=== PATIENT | female | born 1940 | race Caucasian/White ===

== ENCOUNTER 2022-03-17 05:59 | Day surgery (SDC) | payer MEDICARE, OTHER ==
[2022-03-16 11:29] LABS: BASOPHILS % (AUTO) 0.4 % (0-1); EOSINOPHILS # (AUTO) 0.2 X10'3 (0-0.9); EOSINOPHILS % (AUTO) 3.1 % (0-6); HEMOGLOBIN 14.3 g/dl (12.0-16.0); LYMPHOCYTES # (AUTO) 1.2 X10'3 (1.1-4.8); LYMPHOCYTES % (AUTO) 23.1 % (21-51); MEAN CORPUSCULAR HEMOGLOBIN 28.4 PG (27.0-31.0); MEAN CORPUSCULAR HGB CONC 33.3 g/dL (33.0-36.5); MEAN CORPUSCULAR VOLUME 85.3 FL (78-98); MEAN PLATELET VOLUME 9.2 FL (7.4-10.4); MONOCYTES # (AUTO) 0.6 X10'3 (0-0.9); MONOCYTES % (AUTO) 12.3 % (2-12); NEUTROPHILS # (AUTO) 3.1 X10'3 (1.8-7.7); NEUTROPHILS % (AUTO) 61.1 % (42-75); PLATELET COUNT 188 X10'3 (140-440); RED BLOOD COUNT 5.04 X10'6 (4.20-5.60); RED CELL DISTRIBUTION WIDTH 14.7 % (11.5-14.5); WHITE BLOOD COUNT 5.1 X10'3 (4.5-11.0)
[2022-03-16 14:54] LABS: APTT 27 SECONDS (22-32)
[2022-03-16 15:05] LABS: ALBUMIN 3.8 G/DL (3.4-5.0); ANION GAP 11 (8-16); BLOOD UREA NITROGEN 19 MG/DL (7-18); BUN/CREATININE RATIO 21.6 (6.6-38.0); CALCIUM 9.7 MG/DL (8.5-10.1); CHLORIDE 105 MMOL/L (99-107); CREATININE 0.88 MG/DL (0.40-0.90); GLUCOSE 169 MG/DL (70-104); SODIUM 144 MMOL/L (135-145); TOTAL CARBON DIOXIDE 28.2 MMOL/L (24-32); eGFR 62 ML/MIN
[~2022-03-17] VITALS: Ht 160 cm; Wt 71.7 kg
[2022-03-17] VITALS (13 sets, daily range): BP systolic 111–180; BP diastolic 49–91
[2022-03-17] MEDS ORDERED: LORazepam 0.5 MG tablet PO PRN (06:20)
[2022-03-17] MEDS ORDERED: diphenhydrAMINE 25mg capsule PO PRN (06:20)
[2022-03-17] MEDS ORDERED: normal saline 1,000 ML IV SCH (06:20)
[2022-03-17] MEDS ORDERED: SERT-433 PO (06:28)
[2022-03-17] MEDS ORDERED: OXYB-58 (06:28)
[2022-03-17] MEDS ORDERED: AMLO5TAB16 PO (06:28)
[2022-03-17] MEDS ORDERED: LEVO75TA7 PO (06:28)
[2022-03-17] MEDS ORDERED: ATOR40TA72 PO (06:28)
[2022-03-17] MEDS ORDERED: ESTR1TAB19 (06:28)
[2022-03-17] MEDS ORDERED: FENO145T25 PO (06:28)
[2022-03-17] MEDS ORDERED: PANT40TA54 PO (06:28)
[2022-03-17] MEDS ORDERED: PROP40TA72 PO (06:28)
[2022-03-17] MEDS ORDERED: HYDR12.55 (06:28)
[2022-03-17] MEDS ORDERED: LISI40TA13 PO (06:28)
[2022-03-17] MEDS ORDERED: ASPI-1071 PO (06:29)
[2022-03-17] MEDS ORDERED: CHOL20002 PO (06:30)
[2022-03-17] MEDS ORDERED: BUTA1CAP44 (06:31)
[2022-03-17] MEDS ORDERED: ALPR-624 PO (06:31)
[2022-03-17] MEDS ORDERED: fentaNYL/PF 50MCG/1 ML 2ML syringe ONE (07:08)
[2022-03-17] MEDS ORDERED: midazolam 1 mg/ML 2ml injection ONE (07:08)
[2022-03-17] MEDS ORDERED: verapamil 2.5 mg/ml inj IV ONE (07:08)
[2022-03-17] MEDS ORDERED: nitroGLYCERIN-Tridil 50MG/D5W 250 ML IV ONE (07:08)
[2022-03-17] MEDS ORDERED: LIDOcaine 1% (10mg/ml) 2ml vial ONE (07:09)
[2022-03-17] MEDS ORDERED: iohexol 350MG/ML 100ml bottle IV ONE ×2 (07:09→09:43)
[2022-03-17] MEDS ORDERED: heparin 1,000unit/ml 10ml vial 10 ML ONE (07:09)
== END 2022-03-17 15:50 | disposition home or self-care (01) ==
LOC: SSTAY O 05:59
PROVIDERS: ATTEND Internal Medicine Cardiovascular Disease
DX: I25.10 Atherosclerotic heart disease of native coronary artery without angina pectoris (principal); E11.9 Type 2 diabetes mellitus without complications; I10 Essential (primary) hypertension; E78.5 Hyperlipidemia, unspecified; Z95.5 Presence of coronary angioplasty implant and graft; Z79.01 Long term (current) use of anticoagulants; Z79.82 Long term (current) use of aspirin; Z79.899 Other long term (current) drug therapy; Z90.49 Acquired absence of other specified parts of digestive tract; Z87.442 Personal history of urinary calculi; Z98.890 Other specified postprocedural states; Z82.49 Family history of ischemic heart disease and other diseases of the circulatory system; Z83.6 Family history of other diseases of the respiratory system; Z88.6 Allergy status to analgesic agent; Z88.8 Allergy status to other drugs, medicaments and biological substances
CPT/HCPCS: 36415; 76937; 80048; 85025; 85610; 85730; 93005; 93458; 99152; 99153; A6258; C1751; C1769; C1894; J1644; J2250; J3010; J3490; J7030; Q9967; A6402; C1725